=== PATIENT | female | born 1940 | race Caucasian/White ===

== ENCOUNTER 2022-02-24 12:17 | Emergency (ER) | payer MEDICARE, OTHER ==
[~2022-02-24] VITALS: Ht 152.9 cm; Wt 58.7 kg
[2022-02-24 12:19] VITALS: BP 154/88
[2022-02-24] MEDS ORDERED: KETOROLAC 30 MG/ML VIAL ONE (12:29)
--- NOTE | 2022-02-24 13:04 | NUR ---
PATIENT IS GOING TO IMAGING VIA [facility]
--- NOTE | 2022-02-24 13:05 | NUR ---
PT TAKEN TO CT VIA [facility]
--- NOTE | 2022-02-24 13:32 | NUR ---
81/F BIB FAMILY WITH C/O RIGHT EYE PAIN AND HEAD PAIN S/P TRIPPING AND FALLING YESTERDAY WHILE ON A WALK CAUSING HER TO FALL ONTO HER RIGHT SIDE. PATIENT DENIES LOC, STATES SHE WOKE UP WITH INCREASED SWELLING TO HER EYE AND 6/10 HEADACHE. PATIENT DENIES VISION CHANGES, DIZZINESS, N/V/D.
[2022-02-24 14:14] VITALS: BP 154/88
--- NOTE | 2022-02-24 14:14 | NUR ---
Patient discharged with v/s stable. Written and verbal after care instructions ABOUT FACIAL OR SCALP CONTUSION given and explained. Patient verbalized understanding. Ambulatory with steady gait. All questions addressed prior to discharge. Advised to follow up with PMD.
== END 2022-02-24 14:14 | disposition home or self-care (01) ==
LOC: MED 12:17
DX: S00.83XA Contusion of other part of head, initial encounter (principal); E11.9 Type 2 diabetes mellitus without complications; I10 Essential (primary) hypertension; E07.9 Disorder of thyroid, unspecified; Z98.890 Other specified postprocedural states; W18.09XA Striking against other object with subsequent fall, initial encounter; Y93.89 Activity, other specified; Y92.89 Other specified places as the place of occurrence of the external cause; Y99.8 Other external cause status
CPT/HCPCS: 70450; 70486; 99284; J1885